=== PATIENT | female | born 1945 | race Two or more races ===

== ENCOUNTER 2018-04-12 13:20 | Inpatient (IN) | payer OTHER ==
[~2018-04-12] VITALS: Ht 152.4 cm; Wt 86.2 kg
[2018-05-17] MEDS ORDERED: TOPROL XL50 M1 PO (16:26)
[2018-05-17] MEDS ORDERED: ASA81 MG PO (16:27)
[2018-05-17] MEDS ORDERED: HYDROCHLOROTH12.5 M1 PO (16:27)
[2018-05-17] MEDS ORDERED: B-122500 MCG SL (16:27)
[2018-05-17] MEDS ORDERED: LOSARTAN-HCTZ1 EAC2 PO (16:27)
== END 2018-05-27 17:42 | DRG 470 ==
LOC: SURH 05-25 05:15 → O/R 05-25 05:26 → SURH 05-25 10:30
PROVIDERS: Orthopaedic Surgery
PROC: 0SRC0J9 Replacement of Right Knee Joint with Synthetic Substitute, Cemented, Open Approach (ICD-10-PCS; principal; 2018-05-25 05:15)
DX: M17.11 Unilateral primary osteoarthritis, right knee (principal); D62 Acute posthemorrhagic anemia; M85.461 Solitary bone cyst, right tibia and fibula; I10 Essential (primary) hypertension

== ENCOUNTER 2021-01-03 09:00 | Inpatient (IN) | payer OTHER ==
[~2021-01-03] VITALS: Ht 162.6 cm; Wt 79.4 kg
[~2021-01-03 09:00] MED LIST: ASA81 MG PO; B-122500 MCG SL; HYDROCHLOROTH12.5 M1 PO; LOSARTAN-HCTZ1 EAC2 PO; TOPROL XL50 M1 PO
[2021-01-03] MEDS ORDERED: PLAVIX75 MG PO (13:18)
[2021-01-03] MEDS ORDERED: TOPROL XL50 M1 PO (13:19)
[2021-01-03] MEDS ORDERED: REFRESH (13:20)
[2021-01-08] MEDS ORDERED: REFRESH CLASSI1 EACH (09:23)
== END 2021-01-10 14:47 | DRG 470 ==
LOC: O/R 01-08 05:27 → SURG 01-08 05:27 → SURH 01-08 09:00 → SURG 01-08 10:52 → SURH 01-08 13:00 → SURG 01-10 14:47
PROVIDERS: ADMIT Orthopaedic Surgery; ATTEND Orthopaedic Surgery
PROC: 0SRD0J9 Replacement of Left Knee Joint with Synthetic Substitute, Cemented, Open Approach (ICD-10-PCS; principal; 2021-01-08 13:00)
DX: M17.12 Unilateral primary osteoarthritis, left knee (principal); D62 Acute posthemorrhagic anemia; I10 Essential (primary) hypertension

== ENCOUNTER 2023-12-09 16:17 | Outpatient (CLI) | payer OTHER ==
[~2023-12-09 16:17] MED LIST changes: +PLAVIX75 MG PO; +REFRESH; +REFRESH CLASSI1 EACH
== END 2023-12-09 16:19 | disposition home or self-care (01) ==
LOC: RAD 16:17
PROVIDERS: ATTEND Orthopaedic Surgery
DX: M25.571 Pain in right ankle and joints of right foot (principal); M25.572 Pain in left ankle and joints of left foot; M79.671 Pain in right foot; M79.672 Pain in left foot

== ENCOUNTER 2023-12-11 08:09 | Outpatient (CLI) | payer OTHER ==
[2023-12-11 08:51] LABS: HEMATOCRIT 33.9 % (36.0-45.00); MEAN CELL VOLUME 95.2 fL (80.00-100.00); MEAN CORPUSCULAR HEMOGLOBIN 33.8 pg (27.00-32.0); MEAN CORPUSCULAR HGB CONC 35.5 g/dl (32.0-36.0); PLATELET COUNT 301 K/uL (150-450); RED BLOOD COUNT 3.56 M/uL (4.00-6.00); RED CELL DISTRIBUTION WIDTH 12.7 % (11.5-14.5)
[2023-12-11 09:11] LABS: INR 0.99; PARTIAL THROMBOPLASTIN TIME 31.3 SECONDS (22.0-34.0); PROTHROMBIN TIME 10.4 SECONDS (9.0-11.5)
[2023-12-11 09:18] LABS: URINE APPEARANCE Clear; URINE BILIRRUBIN Negative (NEGATIVE); URINE BLOOD Negative; URINE COLOR Yellow; URINE GLUCOSE Negative (NEGATIVE); URINE LEUKOCYTE Negative; URINE NITRATE Negative; URINE PROTEIN 30 (NEGATIVE); URINE UROBILINOGEN 0.2 E.U./dl
[2023-12-11 09:19] LABS: URINE BACTERIA 118.3 uL (0.0-1933); URINE EPITHELIAL CELLS 9.7 uL (0.0-38.8); URINE WBC 2.3 uL (0.0-23.2)
[2023-12-11 09:24] LABS: URINE RBC 0.4 uL (0.0-20.8)
[2023-12-11 09:28] LABS: COL EPI 124 SECONDS (82-175)
[2023-12-11 09:33] LABS: ALBUMIN 3.3 gm/dL (3.4-5.0); BILIRUBIN TOTAL 0.5 mg/dL (0.3-1.2); CALCIUM 9.5 mg/dL (8.5-10.1); CREATININE SERUM 1.48 mg/dL (0.55-1.02); GFR 34.02; GLOBULINA 4.9 G/DL (2.4-3.5); POTASSIUM 3.89 mEq/L (3.5-5.1); TOTAL PROTEIN 8.2 gm/dL (6.4-8.2)
== END 2023-12-11 08:11 | disposition home or self-care (01) ==
LOC: LAB 08:09
PROVIDERS: ATTEND Orthopaedic Surgery
DX: D64.9 Anemia, unspecified (principal); E88.89 Other specified metabolic disorders; N39.0 Urinary tract infection, site not specified; Z22.322 Carrier or suspected carrier of Methicillin resistant Staphylococcus aureus

== ENCOUNTER 2023-12-11 08:41 | Outpatient (CLI) | payer OTHER | END 2023-12-11 08:43 | disposition home or self-care (01) | LOC: NUCLEAR 08:41 | PROVIDERS: ATTEND Orthopaedic Surgery | DX: I70.213 Atherosclerosis of native arteries of extremities with intermittent claudication, bilateral legs (principal) ==